=== PATIENT | male | born 1985 | race Caucasian/White ===

== ENCOUNTER 2023-04-05 09:20 | Outpatient (CLI) | payer OTHER ==
[2023-04-05 18:53] LABS: Syphilis Antibody Nonreactive (Nonreactive); Syphilis Antibody Index 0.07 S/CO (<1.00 Non-Reactive)
[2023-04-07 03:13] LABS: Mumps IgG ABS 70.8 AU/mL (Immune >10.9)
== END 2023-04-05 09:21 | disposition home or self-care (01) ==
LOC: MADRAD 09:20
PROVIDERS: ATTEND Family Medicine
DX: Z02.9 Encounter for administrative examinations, unspecified (principal); Z11.1 Encounter for screening for respiratory tuberculosis; Z11.3 Encounter for screening for infections with a predominantly sexual mode of transmission
CPT/HCPCS: 36415; 71046; 86735; 86762; 86765; 86780